=== PATIENT | female | born 1975 | race African-American/Black ===

== ENCOUNTER 2017-02-16 10:32 | Emergency (ER) | payer OTHER ==
[2017-02-16 11:01] VITALS: BP 110/78
--- NOTE | 2017-02-16 11:09 | RAD ---
Three-view study of the left ankle History: Left ankle pain and swelling for one month. Findings: Mild lateral soft tissue swelling is seen. No acute fracture or dislocation or osteolytic process is seen. There is a small accessory ossification center just lateral to the talus and distal to the fibula. The mortise ankle joint is intact. IMPRESSION: No acute fracture.
--- NOTE | 2017-02-16 11:22 | PHYS DOC ---
Past Medical History Past Medical History: No Pertinent History Past Surgical History: Tubal ligation, Other Additional Past Surgical Histo: hernia repair Alcohol Use: Occasionally Drug Use: None Adult General Chief Complaint Chief Complaint: ANKLE PROBLEM [facility] HPI Patient is a 41 year old female presents to the emergency department stating that she is having left lateral ankle pain and discomfort. She states that approximately a week ago she injured the ankle. She states that she has some slight swelling noted on the lateral part. She states that she is able to ambulate without difficulty however she does have some pain that radiates up into the back of her leg. Patient denies any numbness or tingling into the toe area. Patient denies taking anything for pain and discomfort. Patient is able to ambulate with a good steady gait, in boots. Review of Systems Review of Systems Constitutional: Denies fever or chills [] Eyes: Denies change in visual acuity, redness, or eye pain [] HENT: Denies nasal congestion or sore throat [] Respiratory: Denies cough or shortness of breath [] Cardiovascular: No additional information not addressed in HPI [] GI: Denies abdominal pain, nausea, vomiting, bloody stools or diarrhea [] : Denies dysuria or hematuria [] Musculoskeletal: Denies back pain. Complaint of left lateral ankle pain Integument: Denies rash or skin lesions [] Neurologic: Denies headache, focal weakness or sensory changes [] Endocrine: Denies polyuria or polydipsia [] Allergies Allergies Allergies Coded Allergies Type Severity Reaction Last Updated Verified No Known Drug Allergies 02/23/15 No Physical Exam Physical Exam Constitutional: Well developed, well nourished, no acute distress, non-toxic appearance. [] HENT: Normocephalic, atraumatic, bilateral external ears normal, oropharynx moist, no oral exudates, nose normal. [] Eyes: PERRLA, EOMI, conjunctiva normal, no discharge. [] Neck: Normal range of motion, no tenderness, supple, no stridor. [] Cardiovascular:Heart rate regular rhythm, no murmur [] Lungs & Thorax: Bilateral breath sounds clear to auscultation [] Skin: Warm, dry, no erythema, no rash. [] Extremities: Left lateral ankle tenderness, no cyanosis, no clubbing, ROM intact , no edema. Negative knee tenderness noted. Patient does have slight swelling on the left lateral part of the ankle. Cap refill brisk less than 2 seconds. Peripheral pulses 2+. Patient with full range of motion of the ankle. Neurologic: Alert and oriented X 3, normal motor function, normal sensory function, no focal deficits noted. [] Psychologic: Affect normal, judgement normal, mood normal. [] Current Patient Data Vital Signs Vital Signs Date Time Temp Pulse Resp B/P (MAP) Pulse Ox O2 Delivery O2 Flow Rate FiO2 02/16/17 11:01 98.5 69 18 97 Room Air 98.5 EKG EKG [] Radiology/Procedures Radiology/Procedures [][facility] [address] [place], [place] [id number] IMAGING REPORT Signed PATIENT: JULIETTE BLANCA ACCOUNT: [id number] : 1975 LOCATION: ER AGE: 41 SEX: F EXAM STATUS: PRE ER ORD. PHYSICIAN: JAZZY SHEA APRN REASON: red and swollen denies injury PROCEDURE: ANKLE LEFT 3V Three-view study of the left ankle History: Left ankle pain and swelling for one month. Findings: Mild lateral soft tissue swelling is seen. No acute fracture or dislocation or osteolytic process is seen. There is a small accessory ossification center just lateral to the talus and distal to the fibula. The mortise ankle joint is intact. IMPRESSION: No acute fracture. DICTATED and SIGNED BY: ELLIOTT IZQUIERDO MD DATE: 02/16/17 1105 CC: JAZZY SHEA APRN; NO PCP ~ Course & Med Decision Making Course & Med Decision Making Pertinent Labs and Imaging studies reviewed. (See chart for details) X-ray was negative for any bony abnormalities however there was slight swelling noted. Patient will be placed in a Rex wrap with recommendations to follow-up with primary care physician in the next week. Recommended ice packs elevation as much as possible. Recommended Tylenol or ibuprofen for pain and discomfort. Patient was provided with ibuprofen here in the emergency department. Patient will be discharged home in stable condition she'll be provided with orthopedic name and number to follow up within the next week. All questions and concerns been answered at the patient's bedside. Patient agrees with discharge instructions treatment regimens and follow-up recommendations. [] Dragon Disclaimer Dragon Disclaimer This electronic medical record was generated, in whole or in part, using a voice recognition dictation system. Departure Departure Impression: Primary Impression: Left ankle sprain Disposition: HOME, SELF-CARE Condition: STABLE Referrals: NO PCP (PCP) ABBY DILLON II, MD Patient Instructions: Ankle Sprain, [id number] Additional Instructions: Activity as tolerated. Tylenol or ibuprofen for pain and discomfort. Ice packs on 20 minutes off 20 minutes several times a day. Elevation as much as possible. Wear the Rex wrap for the next 5-7 days. Follow-up with orthopedic in the next week. Return back to emergency prior signs symptoms of become worse. Problem Qualifiers Primary Impression: Left ankle sprain Encounter type: initial encounter Involved ligament of ankle: unspecified ligament Qualified Codes: S93.402A - Sprain of unspecified ligament of left ankle, initial encounter JAZZY SHEA APRN Feb 16, 2017 11:22
== END 2017-02-16 11:50 | disposition home or self-care (01) ==
LOC: ER 10:32
DX: S93.402A Sprain of unspecified ligament of left ankle, initial encounter (principal); X58.XXXA Exposure to other specified factors, initial encounter; Y93.89 Activity, other specified; Y99.8 Other external cause status; Y92.89 Other specified places as the place of occurrence of the external cause
CPT/HCPCS: 73610; 99284